=== PATIENT | female | born 1975 | race African-American/Black ===

== ENCOUNTER 2020-07-16 02:19 | Emergency (ER) | payer MEDICAID, OTHER ==
[~2020-07-16] VITALS: Ht 160 cm; Wt 91.2 kg
[2020-07-16 04:07] VITALS: BP 125/90
[2020-07-16] MEDS ORDERED: KETOROLAC TROMETH 60MG/2ML VIAL IM ONE ×2 (04:15)
== END 2020-07-16 04:30 | disposition home or self-care (01) ==
LOC: ER 02:19
DX: M25.532 Pain in left wrist (principal); M25.531 Pain in right wrist; M25.562 Pain in left knee; M25.561 Pain in right knee; W01.0XXA Fall on same level from slipping, tripping and stumbling without subsequent striking against object, initial encounter; Y93.89 Activity, other specified; Y92.89 Other specified places as the place of occurrence of the external cause; Y99.8 Other external cause status
CPT/HCPCS: 73130; 96372; 99284; J1885